=== PATIENT | male | born 1995 | race Asian ===

== ENCOUNTER 2018-09-20 02:38 | Emergency (ER) | payer OTHER ==
[~2018-09-20] VITALS: Ht 175.3 cm; Wt 52.2 kg
[2018-09-20 02:40] VITALS: Ht 175.3 cm; Wt 52.2 kg
[2018-09-20 03:08] VITALS: BP 110/82
== END 2018-09-20 03:08 | disposition other institution (70) ==
LOC: ED 02:38
DX: Z02.89 Encounter for other administrative examinations (principal)